=== PATIENT | female | born 2000 | race Caucasian/White ===

== ENCOUNTER → 2021-07-30 20:32 | Observation (INO) ==
[2021-07-30 18:32] LABS: Immature Granulocytes % 0.6 % (0-4); Mean Corpuscular Volume 85.4 fL (83.0-100.0); Red Cell Distribution Width 12.9 % (11.5-14.5)
[2021-07-30 18:34] LABS: Basophils % 0.8 %; Eosinophils # 0.1 K/mcL (0.0-0.6); Hematocrit 40.5 % (35.3-44.9); Hemoglobin 13.7 g/dL (11.5-15.4); Immature Platelets 33.4 % (1.1-6.1); Lymphocytes # 1.5 K/mcL (0.6-4.6); Lymphocytes % 28.9 %; Mean Corpuscular HGB Conc 33.8 g/dL (31.6-35.5); Mean Corpuscular Hemoglobin 28.9 pg (28.0-33.3); Monocytes # 0.3 K/mcL (0.0-1.3); Monocytes % 6.4 %; Neutrophils # 3.1 K/mcL (1.6-8.9); Red Blood Count 4.74 M/mcL (3.82-4.97); Segmented Neutrophils % 62.3 %
[2021-07-30 18:46] LABS: Platelet Count 6 K/mcL (140-400)
[2021-07-30 20:17] VITALS: BP 117/78; PULSE 83; TEMP 98.8; O2SAT 99
[~2021-07-30 20:32] MED LIST: 0.9 % Sodium Chloride 1,000 ML IVC SCH; Ringers Solution, Lactated 500 ML IVC SCH
== END | disposition home or self-care (01) ==
LOC: 1NENUOBS
PROVIDERS: ADMIT Obstetrics & Gynecology; ATTEND Obstetrics & Gynecology